=== PATIENT | female | born 1990 | race African-American/Black ===

== ENCOUNTER 2019-09-04 09:06 | Outpatient (CLI) | payer MEDICAID ==
--- NOTE | 2019-09-04 10:27 | ULT ---
Exam: TRANSABDOMINAL PELVIC ULTRASOUND: HISTORY: Right lower quadrant pain, x6 weeks. TECHNIQUE: Transabdominal imaging of the pelvis is performed. Ovaries are interrogated with grayscale , color flow, Doppler imaging and spectral waveform analysis. FINDINGS: Uterus is identified measuring 8.7 x 4.5 x 5.5 cm. There are no myometrial masses. Endometrium: Limited evaluation. Visualized endometrium is slightly heterogeneous and measures 1.4 cm . No obvious masses in the lower uterine segment. Free fluid: None. Right ovary: Normal echotexture measuring 3.3 x 2.2 x 3.0 cm. Left ovary: Normal echotexture, measuring 3.3 x 3.9 x 2.6 cm. There is no mass or fluid in the left or right adnexa. Ovarian Doppler: Vascular flow to both ovaries. IMPRESSION: Unremarkable pelvic ultrasound. Transcribed Date/Time: 09/04/2019 10:40 AM
== END 2019-09-04 09:07 | disposition home or self-care (01) ==
LOC: BICULT 09:06
PROVIDERS: ATTEND Nurse Practitioner Family
DX: R10.2 Pelvic and perineal pain (principal)
CPT/HCPCS: 76856; 93976